=== PATIENT | female | born 2000 | race Caucasian/White ===

== ENCOUNTER 2023-10-20 10:16 | Emergency (ER) | payer MEDICAID, OTHER ==
[~2023-10-20] VITALS: Ht 175.3 cm; Wt 89.8 kg
[2023-10-20 10:18] VITALS: BP 126/85; PULSE 91; RESP 16; TEMP 98; O2SAT 99
[2023-10-20] MEDS ORDERED: BENZ200C4 PO (10:43)
[2023-10-20] MEDS ORDERED: IBUP-2213 PO (10:43)
[2023-10-20 11:18] LABS: FLU A ANTIGEN negative (NEGATIVE); FLU B ANTIGEN NEGATIVE (NEGATIVE)
[2023-10-20 11:37] VITALS: BP 120/83; PULSE 70; RESP 16; TEMP 98; O2SAT 99
== END 2023-10-20 11:34 | disposition home or self-care (01) ==
LOC: MED 10:16
DX: J06.9 Acute upper respiratory infection, unspecified (principal); Z20.822 Contact with and (suspected) exposure to COVID-19; B34.9 Viral infection, unspecified; Z79.899 Other long term (current) drug therapy
CPT/HCPCS: 99283